=== PATIENT | female | born 1945 ===

== ENCOUNTER 2023-06-22 12:47 | Inpatient (IN) | payer OTHER ==
[~2023-06-22] VITALS: Ht 160 cm; Wt 86.2 kg
[2023-06-22] MEDS ORDERED: SIMVASTAT PO (13:59)
[2023-06-22] MEDS ORDERED: ENALAP PO (13:59)
[2023-06-22] MEDS ORDERED: HUMALOG100 UNIT/1 (14:07)
[2023-06-22] MEDS ORDERED: LANTUS (14:08)
[2023-06-26 14:21] LABS: HEMATOCRIT 30.6 % (36.0-45.00); HEMOGLOBIN 10.3 g/dL (12.0-15.00); RED BLOOD COUNT 3.48 M/uL (4.00-6.00)
[2023-06-27 06:54] LABS: HEMATOCRIT 28.6 % (36.0-45.00); HEMOGLOBIN 9.8 g/dL (12.0-15.00); MEAN CELL VOLUME 86.9 fL (80.00-100.00); MEAN CORPUSCULAR HEMOGLOBIN 29.7 pg (27.00-32.0); MEAN CORPUSCULAR HGB CONC 34.2 g/dl (32.0-36.0); PLATELET COUNT 154 K/uL (150-450); RED BLOOD COUNT 3.29 M/uL (4.00-6.00); RED CELL DISTRIBUTION WIDTH 14.1 % (11.5-14.5)
[2023-06-28] MEDS ORDERED: XARELTO10 MG PO (06:41)
[2023-06-28] MEDS ORDERED: OXYC1TAB9 PO (06:41)
[2023-06-28] MEDS ORDERED: BACTRIM DS TAB1 EACH PO (06:41)
[2023-06-28] MEDS ORDERED: INTEGRA PLUS C1 EACH PO (06:41)
[2023-06-28 07:55] LABS: HEMATOCRIT 29.1 % (36.0-45.00); HEMOGLOBIN 9.9 g/dL (12.0-15.00); MEAN CORPUSCULAR HEMOGLOBIN 29.8 pg (27.00-32.0); MEAN CORPUSCULAR HGB CONC 33.9 g/dl (32.0-36.0); PLATELET COUNT 154 K/uL (150-450); RED BLOOD COUNT 3.31 M/uL (4.00-6.00); RED CELL DISTRIBUTION WIDTH 14.3 % (11.5-14.5)
== END 2023-06-28 19:00 | DRG 470 ==
LOC: O/R 06-26 06:32 → SURG 06-26 06:32 → SURH 06-26 07:00 → SURG 06-26 13:54
PROVIDERS: ADMIT Orthopaedic Surgery Sports Medicine; ATTEND Orthopaedic Surgery Sports Medicine
PROC: 0SRD0J9 Replacement of Left Knee Joint with Synthetic Substitute, Cemented, Open Approach (ICD-10-PCS; principal; 2023-06-26 07:00)
DX: M17.12 Unilateral primary osteoarthritis, left knee (principal)